=== PATIENT | female | born 1995 ===

== ENCOUNTER 2020-05-16 16:46 | Emergency (ER) | payer SELFPAY ==
[~2020-05-16] VITALS: Ht 152.4 cm; Wt 54.4 kg
[2020-05-16 17:00] VITALS: BP 148/78
[2020-05-16] MEDS ORDERED: SODIUM CHLORIDE 0.9% 1,000 ML IV ONE (17:15)
== END 2020-05-16 18:54 ==
LOC: ER 16:46
DX: F10.920 Alcohol use, unspecified with intoxication, uncomplicated (principal)
CPT/HCPCS: 36415; 80320